=== PATIENT | female | born 1965 | race Two or more races ===

== ENCOUNTER 2016-11-15 14:42 | Emergency (ER) | payer OTHER ==
[~2016-11-15] VITALS: Ht 152.4 cm; Wt 66.7 kg
[2016-11-15 16:54] LABS: Albumin 3.8 g/dL (3.4-5.0); BUN/Creatinine Ratio 12.3; Calcium 9.1 mg/dL (8.5-10.1); Magnesium 2.2 mg/dL (1.6-2.6); Potassium 3.9 mmol/L (3.5-5.1)
[2016-11-15 16:57] LABS: Bilirubin, Total 0.1 mg/dL (0.2-1.0); Total Protein 7.6 g/dL (6.4-8.2)
[2016-11-15 17:10] LABS: Basophils # (auto) 0 uL; Basophils % (auto) 0.3 % (0.0-2.0); Eosinophils # (auto) 0.3 uL; Eosinophils % (auto) 2.3 % (0.0-7.0); Hematocrit 38.8 % (36.0-46.0); Hemoglobin 12.8 g/dL (12.2-16.2); Lymphocytes # (auto) 1.9 uL; Lymphocytes % (auto) 17.1 % (10.0-50.0); Mean Corpuscular Hemoglobin 29.1 pg (28.0-32.0); Mean Corpuscular Hgb Conc. 32.9 g/dL (32.0-36.0); Mean Corpuscular Volume 88.5 fL (80.0-100.0); Mean Platelet Volume 8.2 fL (7.4-10.4); Monocytes # (auto) 0.7 uL; Neutrophils # (auto) 8.3 uL; Neutrophils % (auto) 74.3 % (37.0-80.0); Platelet Count (auto) 369 10^3/uL (140-450); Red Cell Distribution Width 14.2 % (11.6-16.0); White Blood Cell 11.2 10^3/uL (4.4-10.8)
[2016-11-15 23:31] VITALS: BP 145/98
== END 2016-11-16 00:36 | disposition home or self-care (01) ==
LOC: ER 14:56
DX: J18.9 Pneumonia, unspecified organism (principal); J84.9 Interstitial pulmonary disease, unspecified
CPT/HCPCS: 36415; 71010; 80053; 83735; 84484; 85025; 93005

== ENCOUNTER → 2017-02-13 | Outpatient (CLI) | payer OTHER | END | disposition home or self-care (01) | LOC: Rad HDHVI 10:45 | PROVIDERS: ATTEND Internal Medicine Cardiovascular Disease | DX: I08.1 Rheumatic disorders of both mitral and tricuspid valves (principal); I10 Essential (primary) hypertension; E78.00 Pure hypercholesterolemia, unspecified; R06.9 Unspecified abnormalities of breathing; R05 Cough | CPT/HCPCS: 93306 ==

== ENCOUNTER → 2017-02-26 | Outpatient (CLI) | payer OTHER ==
[2017-02-26 15:02] LABS: Hepatitis B Surface Antibody Non Reactive
== END | disposition home or self-care (01) ==
LOC: LAB 14:18
PROVIDERS: ATTEND Nurse Practitioner
DX: V00-Y99 External causes of morbidity (principal)
CPT/HCPCS: 36415; 86703; 86706; 86803; 87340